=== PATIENT | female | born 1995 | race Caucasian/White ===

== ENCOUNTER 2018-12-04 21:42 | Emergency (ER) | payer OTHER ==
[~2018-12-04] VITALS: Ht 154.9 cm; Wt 59.0 kg
== END 2018-12-04 22:56 | disposition home or self-care (01) ==
LOC: ER 21:42
DX: T78.1XXA Other adverse food reactions, not elsewhere classified, initial encounter (principal); R21 Rash and other nonspecific skin eruption

== ENCOUNTER 2019-03-27 20:46 | Emergency (ER) | payer OTHER ==
[~2019-03-27] VITALS: Ht 152.4 cm; Wt 63.5 kg
== END 2019-03-28 00:34 | disposition home or self-care (01) ==
LOC: ER 20:46
DX: N39.0 Urinary tract infection, site not specified (principal)

== ENCOUNTER → 2019-08-22 | Emergency (ER) | payer OTHER ==
[~2019-08-22] VITALS: Ht 152.4 cm; Wt 63.5 kg
[~2019-08-22] MED LIST: DOLOGESIC 500-1 EACH PO; ZYNCOF 20-400120 ML PO
== END | disposition home or self-care (01) ==
LOC: ER 19:45
DX: J11.1 Influenza due to unidentified influenza virus with other respiratory manifestations (principal); R50.81 Fever presenting with conditions classified elsewhere

== ENCOUNTER 2021-09-16 14:17 | Emergency (ER) | payer OTHER ==
[~2021-09-16] VITALS: Ht 152.4 cm; Wt 111.1 kg
== END 2021-09-16 17:03 | disposition home or self-care (01) ==
LOC: ER 14:17
DX: K52.9 Noninfective gastroenteritis and colitis, unspecified (principal)

== ENCOUNTER 2021-11-03 09:54 | Emergency (ER) | payer OTHER ==
[~2021-11-03] VITALS: Ht 162.6 cm; Wt 81.6 kg
== END 2021-11-03 11:57 | disposition home or self-care (01) ==
LOC: ER 09:54
DX: J45.909 Unspecified asthma, uncomplicated (principal); T78.40XA Allergy, unspecified, initial encounter; X58.XXXA Exposure to other specified factors, initial encounter; Z91.013 Allergy to seafood; Z91.018 Allergy to other foods

== ENCOUNTER 2022-03-28 11:48 | Emergency (ER) | payer OTHER ==
[~2022-03-28] VITALS: Ht 152.4 cm; Wt 74.8 kg
== END 2022-03-28 19:26 | disposition home or self-care (01) ==
LOC: ER 11:48
DX: J06.9 Acute upper respiratory infection, unspecified (principal); Z20.822 Contact with and (suspected) exposure to COVID-19; Z91.013 Allergy to seafood; Z91.018 Allergy to other foods

== ENCOUNTER 2024-04-01 20:08 | Inpatient (IN) | payer OTHER ==
[~2024-04-01] VITALS: Ht 152.4 cm; Wt 68.0 kg
[2024-04-01] MEDS ORDERED: PROAIR RESPICL90 MCG IH (20:24)
[2024-04-01] MEDS ORDERED: BENZONATATE 100 MG CAPSULE PO ONE (20:45)
[2024-04-01] MEDS ORDERED: LEVALBUTEROL HCL 0.63 MG/3 ML SOLUTION IH ONE (20:45)
[2024-04-01] MEDS ORDERED: HYDROCORTISONE SODIUM SUCC/PF 100 MG VIAL IM ONE (20:45)
[2024-04-01] MEDS ORDERED: HYDROCORTISONE SODIUM SUCC/PF 100 MG VIAL ONE (20:52)
[2024-04-01 21:39] LABS: HEMOGLOBIN 13.6 g/dL (12.0-15.00); MEAN CELL VOLUME 87.4 fL (80.00-100.00); MEAN CORPUSCULAR HEMOGLOBIN 29.7 pg (27.00-32.0); PLATELET COUNT 345 K/uL (150-450); RED BLOOD COUNT 4.57 M/uL (4.00-6.00); RED CELL DISTRIBUTION WIDTH 13.2 % (11.5-14.5)
[2024-04-01 21:47] LABS: ALBUMIN 3.5 gm/dL (3.4-5.0); BILIRUBIN TOTAL 0.32 mg/dL (0.3-1.2); CALCIUM 8.4 mg/dL (8.5-10.1); CREATININE SERUM 1.07 mg/dL (0.55-1.02); GFR 60.63; GLOBULINA 3.5 G/DL (2.4-3.5); POTASSIUM 4.18 mEq/L (3.5-5.1)
[2024-04-01] MEDS ORDERED: 0.9 % SODIUM CHLORIDE 1,000 ML IV SCH (22:45)
[2024-04-01] MEDS ORDERED: AZITHROMYCIN 500 MG in DEXTROSE 5 % IN WATER 250 ML IV SCH (22:46)
[2024-04-01] MEDS ORDERED: CEFTRIAXONE SODIUM 2,000 MG in 0.9 % SODIUM CHLORIDE 100 ML IV SCH (22:46)
[2024-04-01] MEDS ORDERED: ACETAMINOPHEN 500 MG GEL..CAP PO PRN (23:00)
[2024-04-01 23:34] VITALS: BP 110/60
[2024-04-01] MEDS ORDERED: IPRATROPIUM/ALBUTEROL SULFATE 3 ML AMPUL.NEB IH ONE (23:42)
[2024-04-01] MEDS ORDERED: CEFTRIAXONE SODIUM 2,000 MG VIAL ONE (23:47)
[2024-04-01] MEDS ORDERED: AZITHROMYCIN 500 MG VIAL IV ONE (23:47)
[2024-04-02 00:36] LABS: D DIMER < 0.19 MG/L; INR 0.99; PARTIAL THROMBOPLASTIN TIME 27.4 SECONDS (22.0-34.0); PROTHROMBIN TIME 10.8 SECONDS (9.0-11.5)
[2024-04-02] MEDS ORDERED: IPRATROPIUM/ALBUTEROL SULFATE 3 ML AMPUL.NEB IH SCH (01:00)
[2024-04-02 01:42] VITALS: BP 114/74
[2024-04-02 04:19] LABS: URINE EPITHELIAL CELLS 26.2 uL (0.0-38.8)
[2024-04-02 04:23] LABS: URINE APPEARANCE Clear; URINE BILIRRUBIN Negative (NEGATIVE); URINE BLOOD Negative; URINE COLOR Yellow; URINE GLUCOSE Negative (NEGATIVE); URINE KETONE Negative (NEGATIVE); URINE LEUKOCYTE Negative; URINE NITRATE Negative; URINE PROTEIN Negative (NEGATIVE); URINE UROBILINOGEN 0.2 E.U./dl
[2024-04-02 06:38] LABS: ABG PH 7.429 (7.35-7.45); ABG PO2 93.1 mmHg (80-100); ABG pCO2 35.2 mmHg (35-45); BASE EXCESS -0.9 mmol/l; BICARBONATE 22.8 mmol/l (23-25); SaO2 97.4 %; Tco2 23.9 mmol/l; o2 21 %
[2024-04-02 06:39] LABS: allen test SATISFACTORY; puncture site RADIAL RIGHT
[2024-04-02] MEDS ORDERED: BENZONATATE 100 MG CAPSULE PO SCH (09:00)
[2024-04-02] MEDS ORDERED: FAMOTIDINE/PF 20 MG in 0.9 % SODIUM CHLORIDE 8 ML IV PUSH SCH (09:00)
[2024-04-02] MEDS ORDERED: METHYLPREDNISOLONE SOD SUCC 40 MG VIAL IV SCH (09:00)
[2024-04-02 09:09] VITALS: BP 100/66
[2024-04-02 16:30] VITALS: BP 112/75; O2SAT 98
[2024-04-02] MEDS ORDERED: MONTELUKAST SODIUM 10 MG TABLET PO SCH (17:00)
[2024-04-02] MEDS ORDERED: AZITHROMYCIN 500 MG in 0.9 % SODIUM CHLORIDE 250 ML IV SCH (21:00)
[2024-04-02] MEDS ORDERED: ALBUTEROL SULFATE 3 ML/2.5 MG AMPUL.NEB IH SCH (21:00)
[2024-04-03 02:04] VITALS: BP 115/69
[2024-04-03 07:42] LABS: HEMATOCRIT 39.6 % (36.0-45.00); HEMOGLOBIN 13.3 g/dL (12.0-15.00); MEAN CELL VOLUME 89.9 fL (80.00-100.00); MEAN CORPUSCULAR HEMOGLOBIN 30.3 pg (27.00-32.0); MEAN CORPUSCULAR HGB CONC 33.7 g/dl (32.0-36.0); PLATELET COUNT 323 K/uL (150-450); RED CELL DISTRIBUTION WIDTH 12.8 % (11.5-14.5)
[2024-04-03 08:08] LABS: ALBUMIN 3.2 gm/dL (3.4-5.0); BILIRUBIN TOTAL 0.42 mg/dL (0.3-1.2); CALCIUM 8.3 mg/dL (8.5-10.1); CREATININE SERUM 0.63 mg/dL (0.55-1.02); GFR 111.72; GLOBULINA 3.3 G/DL (2.4-3.5); POTASSIUM 4.72 mEq/L (3.5-5.1); T4 FREE 0.96 NG/ML (0.76-1.46); TOTAL PROTEIN 6.5 gm/dL (6.4-8.2)
[2024-04-03 08:09] LABS: TSH 0.254 uIU/mL (0.358-3.74)
[2024-04-03 09:04] VITALS: BP 109/67; O2SAT 98
[2024-04-03 17:46] VITALS: BP 124/75; O2SAT 98
[2024-04-03] MEDS ORDERED: METHYLPREDNISOLONE SOD SUCC 125 MG VIAL IV SCH (18:00)
[2024-04-03 21:28] VITALS: BP 123/68; O2SAT 100
[2024-04-04] MEDS ORDERED: FLUTICASONE PROPIONATE 50 MCG SPRAY NASAL STA (02:44)
[2024-04-04] MEDS ORDERED: LORATADINE 10 MG TABLET PO SCH (02:46)
[2024-04-04 02:56] VITALS: BP 106/64
[2024-04-04 03:00] VITALS: O2SAT 100
[2024-04-04] MEDS ORDERED: PHENYLEPHRINE HCL 10 MG/ML AMPUL IV PRN (03:00)
[2024-04-04 08:00] VITALS: BP 127/78; O2SAT 100
[2024-04-04] MEDS ORDERED: FLUTICASONE PROPIONATE 50 MCG SPRAY NASAL SCH (09:00)
[2024-04-04] MEDS ORDERED: METHYLPREDNISOLONE SOD SUCC 40 MG VIAL IV SCH (17:00)
[2024-04-04 17:49] VITALS: BP 113/70; O2SAT 96
[2024-04-04 21:51] VITALS: BP 116/80; O2SAT 100
[2024-04-05 01:17] VITALS: BP 116/73
[2024-04-05 08:33] VITALS: BP 105/66
[2024-04-05] MEDS ORDERED: FAMOTIDINE/PF 20 MG/2 ML VIAL ONE (08:54)
[2024-04-05 17:23] VITALS: BP 140/77
[2024-04-05] MEDS ORDERED: METHYLPREDNISOLONE SOD SUCC 40 MG VIAL IV SCH (21:00)
[2024-04-06] MEDS ORDERED: METHYLPREDNISOLONE SOD SUCC 40 MG VIAL IV SCH (01:00)
[2024-04-06 01:50] VITALS: BP 95/55
[2024-04-06 08:00] VITALS: BP 116/67
[2024-04-06] MEDS ORDERED: FAMOTIDINE/PF 20 MG/2 ML VIAL ONE (09:16)
[2024-04-06] MEDS ORDERED: LORATADINE10 MG PO (17:34)
[2024-04-06] MEDS ORDERED: SYMBICORT 80/10.2 GM IH (17:34)
[2024-04-06] MEDS ORDERED: MONTELUKAST SOD10 MG PO (17:34)
[2024-04-06] MEDS ORDERED: BENZONATATE100 MG PO (17:34)
[2024-04-06] MEDS ORDERED: MEDROLPACK PO (17:34)
[2024-04-06 17:52] VITALS: BP 126/82
[2024-04-08 01:08] LABS: borde igm 3.9 index (0.0-0.9); bordetella igg 2.83 index (0.00-0.94)
== END 2024-04-06 19:37 | disposition home or self-care (01) | DRG 203 ==
LOC: ER 20:10 → MEDI 23:26
PROVIDERS: General Practice; Internal Medicine Infectious Disease; ADMIT Internal Medicine; ATTEND Internal Medicine
PROC: BW24ZZZ Computerized Tomography (CT Scan) of Chest and Abdomen (ICD-10-PCS; principal; 2024-04-01)
DX: J45.41 Moderate persistent asthma with (acute) exacerbation (principal); J20.9 Acute bronchitis, unspecified; G47.33 Obstructive sleep apnea (adult) (pediatric); M79.7 Fibromyalgia